=== PATIENT | female | born 1970 | race Caucasian/White ===

== ENCOUNTER → 2017-01-13 17:00 | Outpatient (CLI) | payer BC ==
[2009-11-20 08:44] VITALS: BMI 49.6
== END | disposition home or self-care (01) ==
LOC: D.MAMMO 13:00
DX: R92.2 Inconclusive mammogram (principal)

== ENCOUNTER 2017-10-15 14:56 | Outpatient (CLI) | payer BC ==
[~2017-10-15] VITALS: Ht 157.5 cm; Wt 88.2 kg
[2017-10-15 15:56] VITALS: BP 111/76; Ht 157.5 cm; Wt 88.2 kg
== END 2017-10-15 17:46 | disposition home or self-care (01) ==
LOC: D.OPS 14:56
DX: E83.51 Hypocalcemia (principal)

== ENCOUNTER 2017-10-23 08:06 | Outpatient (CLI) | payer BC ==
[~2017-10-23] VITALS: Ht 157.5 cm; Wt 86.8 kg
[2017-10-23 08:57] VITALS: BP 123/83; Ht 157.5 cm; Wt 86.8 kg
== END 2017-10-23 10:10 | disposition home or self-care (01) ==
LOC: D.OPS 08:06
DX: E83.51 Hypocalcemia (principal)

== ENCOUNTER → 2017-12-04 08:08 | Outpatient (CLI) | payer BC ==
[~2017-12-04] VITALS: Ht 157.5 cm; Wt 86.4 kg
[2017-12-04 09:04] VITALS: BP 112/78; Ht 157.5 cm; Wt 86.4 kg
== END | disposition home or self-care (01) ==
LOC: D.OPS 08:08
DX: E83.51 Hypocalcemia (principal)

== ENCOUNTER 2018-03-03 08:00 | Outpatient (CLI) | payer BC ==
[2017-12-04 09:04] VITALS: BMI 34.8
== END 2018-03-03 09:00 | disposition home or self-care (01) ==
LOC: D.MAMMO 08:00
DX: Z12.31 Encounter for screening mammogram for malignant neoplasm of breast (principal)